=== PATIENT | female | born 1940 | race American Indian/Alaskan Native ===

== ENCOUNTER 2016-12-04 08:13 | Outpatient (CLI) | payer MEDICARE ==
--- NOTE | 2016-12-04 11:40 | Cat Scan Report ---
CT chest with contrast: Aortic enlargement. Scissors images are obtained from the thoracic inlet to the upper abdomen. Coronal and sagittal 2-D reformatted images are included. The thyroid gland appears slightly inhomogeneous. There may be a nodule present in the left lobe. 2.2 cm nodule in the isthmus. There is no hilar mediastinal nor axillary adenopathy. Central airways are patent. The ascending aorta measures just under 4 cm in diameter. The descending aorta is approximately 3 cm in diameter. There is a smooth aortic contour. No significant calcification. There is a round smooth walled low density noncalcified 7 mm nodule in the right middle lobe. The lungs otherwise are clear the pleural surfaces are unremarkable. There is a hypodense 15 mm nodule in the inferior spleen. The density is greater than that of simple cyst. There is a partially imaged 17 mm peripelvic cyst in the right kidney. Impressions: 1. Ectatic aorta. No aneurysm. 2. Thyroid nodules. 3. Low suspicion right middle lobe pulmonary nodule. 4. Splenic nodule. This could represent a high density cyst. Recommendation: Repeat chest in 4-6 months to reevaluate right middle lobe nodule.
== END 2016-12-04 08:14 | disposition home or self-care (01) ==
LOC: SPVIMAG 08:13
PROVIDERS: ATTEND Internal Medicine
DX: R91.1 Solitary pulmonary nodule (principal); I77.819 Aortic ectasia, unspecified site; N28.1 Cyst of kidney, acquired; E04.1 Nontoxic single thyroid nodule
CPT/HCPCS: 71260; Q9967

== ENCOUNTER 2017-04-21 09:31 | Outpatient (CLI) | payer MEDICARE ==
--- NOTE | 2017-04-22 11:36 | Mammography Report ---
BILATERAL DIGITAL SCREENING MAMMOGRAM with CAD: 04/21/17 09:31:00 CLINICAL: Routine screening. COMPARISON:04/24/16 FINDINGS: The breasts are mostly fatty with a few bilateral fibroglandular densities. No mass, architectural distortion or suspicious calcifications. IMPRESSION: No mammographic evidence of malignancy. BI-RADS CATEGORY: 1 - - Negative RECOMMENDATION: Routine mammographic screening in one year. COMMENT: Patient follow-up letters are generated by our [employer] application.
== END 2017-04-21 09:32 | disposition home or self-care (01) ==
LOC: SPVWC 09:31
PROVIDERS: ATTEND Internal Medicine
DX: Z12.31 Encounter for screening mammogram for malignant neoplasm of breast (principal)
CPT/HCPCS: 77067; G0202

== ENCOUNTER 2018-01-26 10:53 | Outpatient (CLI) | payer MEDICARE ==
--- NOTE | 2018-01-31 14:13 | Cat Scan Report ---
FINAL REPORT EXAM: CT CHEST WO CON HISTORY: F/U PULMONARY NODULE TECHNIQUE: CT of the chest was performed without intravenous contrast. Reconstructions were included in the coronal and sagittal planes. PRIORS: CT of the chest from 12/04/2016. FINDINGS: Great vessels: Mildly aneurysmal descending thoracic aorta is seen measuring up to 3.1 centimeters. Mildly aneurysmal ascending thoracic aorta is seen measuring up to 4.1 centimeters. Lungs and airways: No pleural effusion. Unchanged 7 millimeter ground-glass nodule in the right middle lobe on series 2, image 68. No new nodules. No airspace consolidation. The airways are patent. No bronchiectasis. Bilateral dependent atelectasis is seen. Mediastinum, heart, pericardium: No mediastinal lymphadenopathy. No cardiac chamber enlargement. No pericardial effusion. Coronary artery calculi are again seen. Thoracic inlet, chest wall, axilla: No chest wall masses. Unchanged heterogeneous, enlarged multinodular thyroid gland. No axillary lymphadenopathy. Upper abdomen: Incompletely imaged small low-attenuation right hepatic lesion which likely represents a simple cyst. Hepatic steatosis is noted. Bones: Degenerative changes are again seen in the spine. IMPRESSION: 1. Unchanged 7 millimeter ground-glass right middle lobe pulmonary nodule. Recommend follow-up chest CT in 2 years. 2. Unchanged enlarged thyroid gland with multiple nodules. Recommend further evaluation with thyroid ultrasound if 1 has not already been performed. 3. Hepatic steatosis. 4. Probable simple right hepatic cyst. 5. 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 6. Coronary artery calculi.
== END 2018-01-26 10:54 | disposition home or self-care (01) ==
LOC: CT 10:53
PROVIDERS: ATTEND Internal Medicine
DX: R91.1 Solitary pulmonary nodule (principal); I71.2 Thoracic aortic aneurysm, without rupture; M47.899 Other spondylosis, site unspecified; K76.0 Fatty (change of) liver, not elsewhere classified; E04.9 Nontoxic goiter, unspecified; I25.10 Atherosclerotic heart disease of native coronary artery without angina pectoris
CPT/HCPCS: 71250

== ENCOUNTER 2019-03-17 09:48 | Outpatient (CLI) | payer MEDICARE ==
--- NOTE | 2019-03-20 14:48 | Mammography Report ---
BILATERAL DIGITAL SCREENING MAMMOGRAM WITH CAD INDICATION: Routine screening mammography. TECHNIQUE: Digital bilateral 2D mammography was obtained in the craniocaudal and mediolateral obliq ue projections. This examination was interpreted with the benefit of Computer-Aided Detection analysi s. COMPARISON: 04/24/2016 FINDINGS: Breast Density: The breasts are heterogeneously dense, which may obscure small masses. No mass, architectural distortion or suspicious calcifications. A few bilateral benign calcifications . IMPRESSION:No mammographic evidence of malignancy. BI-RADS Category 2: Benign. No mammographic evidence of malignancy. Recommend routine screening ma mmography in one year. A "normal" or negative report should not discourage follow up or biopsy of a clinically significant f inding. A written summary of these findings will be mailed to the patient. The patient will be entered into a mammography reporting system which will generate a reminder letter for the patient's next appointmen t at the appropriate interval. The [employer] recommends yearly mammograms starting at age 40 and continuing as l eddie as a woman is in good health. Breast MRI is recommended for women with an approximate 20-25% or greater lifetime risk of breast cancer, including women with a strong family history of breast or ova mervin cancer or who have been treated for Hodgkin's disease. Signer Name: Messi Tobar MD Signed: 03/20/2019 2:44 PM Workstation Name: [id number]
== END 2019-03-17 09:49 | disposition home or self-care (01) ==
LOC: SPVWC 09:48
PROVIDERS: ATTEND Internal Medicine
DX: Z12.31 Encounter for screening mammogram for malignant neoplasm of breast (principal)
CPT/HCPCS: 77067

== ENCOUNTER 2019-06-13 09:32 | Outpatient (CLI) | payer MEDICARE ==
--- NOTE | 2019-06-13 12:35 | Magnetic Resonance Report ---
MRI LUMBAR SPINE WITHOUT CONTRAST INDICATION / CLINICAL INFORMATION: Low back pain TECHNIQUE: Multisequence, multiplanar images of the lumbar spine were obtained. COMPARISON: None available. FINDINGS: Please note some of these images are motion related artifacts. S1 is transitional. Last disc space is considered to be S1-S2. ALIGNMENT: Normal lumbar lordosis with mild dextroscoliosis. VERTEBRAE:Normal marrow signal and vertebral body height for age. VISUALIZED SPINAL CORD: No significant abnormality. Conus ends at the L1 level. [id number] ANALYSIS: Bulging disc is seen at T11-T12 and T12-L1 disc levels. At T12-L1 disc level, moderate facet joint hy pertrophic changes are seen. Neuroforamina are normal. L1-2: Disc Space is narrowed. Schmorl's node with surrounding edema is seen suggesting this may be mo re acute. Broad-based soft disc protrusion is seen extending laterally bilaterally more to the right side. Neuroforamina are narrowed. L2-3: Disc space is narrowed. Spondylolisthesis seen. Facet joint hypertrophic changes are seen bilat erally. Broad-based superimposed disc protrusion is seen extending bilaterally. Both neuroforamina ar e narrowed. L3-4: Broad-based shallow disc protrusion is seen towards the left side. Facet joint hypertrophic radha nges are seen bilaterally. Neuroforamina are narrowed. L4-5: Second disc space from below) moderate thecal sac stenosis seen due to combination of broad-bas ed disc protrusion, facet and ligamentous hypertrophy. Neuroforamina and lateral recesses are narrowe d. Foraminal stenoses at multiple levels L5-S1: Disc space from below) facet joint hypertrophic changes are seen bilaterally. Neuroforamina an d the lateral recesses are narrowed. S1-S2 disc space is normal. PARASPINAL SOFT TISSUES: No significant abnormality. ADDITIONAL FINDINGS: None. IMPRESSION: Some of these imaging sequences are marred by motion artifacts. I am considering S1 to be transitional. Last disc space is considered to be S1-S2. Spondylotic changes at almost every lumbar disc level Broad-based disc protrusions at L1-L2 at L2-L3 3 disc levels and to a lesser degree at L3-L4 at L4-L5 disc levels Thecal sac stenoses at L4-L5 disc level Signer Name: Dion Santos MD Signed: 06/13/2019 12:30 PM Workstation Name: [id number]
== END 2019-06-13 09:33 | disposition home or self-care (01) ==
LOC: MRI 09:32
PROVIDERS: ATTEND Internal Medicine
DX: M51.36 Other intervertebral disc degeneration, lumbar region (principal)
CPT/HCPCS: 72148

== ENCOUNTER 2020-10-21 10:12 | Outpatient (CLI) | payer MEDICARE ==
--- NOTE | 2020-10-21 11:12 | Mammography Report ---
DIGITAL SCREENING MAMMOGRAM WITH CAD, 10/21/2020 CLINICAL INFORMATION / INDICATION: Routine screening mammography. TECHNIQUE: Digital bilateral 2D mammography was obtained in the craniocaudal and mediolateral obliqu e projections. This examination was interpreted with the benefit of Computer-Aided Detection analysis . COMPARISON: 03/17/2019, 04/21/2017 FINDINGS: Breast Density: There are scattered areas of fibroglandular density. No dominant mass, suspicious calcifications, or architectural distortion in either breast. IMPRESSION: No mammographic evidence of malignancy. Follow up recommendation: Routine yearly BI-RADS Category 1: Negative. A "normal" or negative report should not discourage follow up or biopsy of a clinically significant f inding. A written summary of these findings will be mailed to the patient. The patient will be entered into a mammography reporting system which will generate a reminder letter for the patient's next appointmen t at the appropriate interval. The [employer] recommends yearly mammograms starting at age 40 and continuing as l eddie as a woman is in good health. Breast MRI is recommended for women with an approximate 20-25% or greater lifetime risk of breast cancer, including women with a strong family history of breast or ova mervin cancer or who have been treated for Hodgkin's disease. Signer Name: Vasu Soto MD Signed: 10/21/2020 11:08 AM Workstation Name: [id number]
== END 2020-10-21 10:13 | disposition home or self-care (01) ==
LOC: SPVWC 10:12
PROVIDERS: ATTEND Internal Medicine
DX: Z12.31 Encounter for screening mammogram for malignant neoplasm of breast (principal)
CPT/HCPCS: 77067

== ENCOUNTER 2020-10-28 07:21 | Outpatient (CLI) | payer MEDICARE ==
--- NOTE | 2020-10-28 08:42 | Cat Scan Report ---
CT CHEST WITHOUT CONTRAST INDICATION / CLINICAL INFORMATION: PULMONARY NODULE. TECHNIQUE: Axial CT images were obtained through the chest without contrast. Sagittal and coronal reformatted im ages. All CT scans at this location are performed using CT dose reduction for ALARA by means of autom ated exposure control. COMPARISON: 01/26/2018 FINDINGS: HEART: No significant abnormality. THORACIC AORTA: Mild dilatation of the ascending aorta is stable at 4.1 cm. MEDIASTINUM and SHARRON: No significant abnormality. LUNGS: No acute air space or interstitial disease. Previously described 7 mm groundglass nodule in t he right middle lobe is unchanged since the previous exam. There is a similar appearing 4 mm groundgl ass density in the superior segment of the left lower lobe on axial image 34. In retrospect this is a lso unchanged. No new or suspicious nodule. PLEURA: No significant pleural effusion. No pneumothorax. SKELETAL SYSTEM: Mild degenerative changes in the thoracic spine. No fracture or suspicious bony lesi on. UPPER ABDOMEN: No significant abnormality. ADDITIONAL FINDINGS: None. IMPRESSION: No change since 01/26/2018. FLEISCHNER 2017 GUIDELINE FOR PULMONARY NODULES SOLID NODULES SOLITARY Solitary nodule size: <6 mm * low-risk patients: no follow-up needed * high-risk patients: optional CT at 12 months (see specific scenarios below) Solitary nodule size: 6-8 mm * low-risk patients: follow-up at 6-12 months, then consider further follow-up at 18-24 months * high-risk patients: initial follow-up CT at 6-12 months and then at 18-24 months if no change Solitary nodule size: >8 mm * either low or high-risk patients * consider follow-up CT at 3 months, and/or CT-PET, and/or biopsy MULTIPLE Multiple nodules size: <6 mm * low-risk patients: no routine follow-up * high-risk patients: optional CT at 12 months Multiple nodules size: 6-8 mm * low-risk patients: follow-up at 3-6 months, then consider further follow-up at 18-24 months * high-risk patients: follow-up at 3-6 months, then at 18-24 months if no change Multiple nodules size: >8 mm * low-risk patients: follow-up at 3-6 months, then consider further follow-up at 18-24 months * high-risk patients: follow-up at 3-6 months, then at 18-24 months if no change Note: newly detected indeterminate nodule in persons 35 years of age or older * low-risk patients: a minimal or absent history of smoking and or other known risk factors * high-risk patients: a history of smoking or of other known risk factors (e.g. first degree relativ e with lung cancer, or exposure to asbestos, radon, uranium) * if a nodule up to 8 mm is partly solid or is ground glass further follow-up is required after 24 m onths to exclude possible slow growing adenocarcinoma SUBSOLID NODULES Solitary pure ground-glass nodule * nodule size: <6 mm * no CT follow-up required * nodule size: 6 mm * follow up CT at 6-12 months, then every 2 years until 5 years Solitary part-solid nodule * nodule size: <6 mm * no CT follow-up required * nodule size: 6 mm * follow-up CT at 3-6 months * if unchanged, and solid component remains <6mm, then annual follow-up for 5 years Multiple sub-solid nodules * nodule size: <6 mm * follow-up CT at 3-6 months * consider further follow-up at 2 and 4 years if stable * nodule size: 6 mm * follow-up CT at 3-6 months * subsequent management based on the most suspicious nodule(s) PRACTICAL POINTS NODULE MEASUREMENT * ideally, the nodules should be measured on its larger diameter (regardless plane) of thin-section CT images displayed in lung windows (highspatial-frequency filter) * thin slices (1.01.5 mm) should be standard for the characterization of pulmonary nodules as it all ows for a better detection of calcium or fat components and avoids volume averaging, which is commonl y seen in thicker slices * large nodules are encouraged to be measured in both their long and short-axis for follow-up purpos es * partly solid nodules that have a solid component over 3 mm should have the maximal diameter of the solid component reported GUIDELINE EXCLUSIONS * patients aged 35 years or younger * considered to have an overall low risk for malignancy pulmonary * in this age group, nodules are most likely to be infectious than cancer * management of incidentally found pulmonary nodules in this group should be individualised * patients with known malignancy * an incidentally detected pulmonary nodule is more likely to be cancer-related that in the general population * immunocompromised patients * higher risk for opportunistic pulmonary infections * lung cancer screening population * these patients are on active screening for being high-risk for lung cancer development, usually cu rrent and former smokers, and, therefore, should have their scans reported accordingly to the Lung-RA DS (lung imaging reporting and data system) https://radiopaedia.org/articles/gsggcadehd-lqxkrev-pztgrhioh-skkhib-zeegatlzsiboowq-2gmyr=us http://www.radiologyassistant.nl/en/[email or web address]/scjedxigbr-[email or web address]-wxhjhqxqr-yzr-fvqoxzysw-mnymqmo.ht ml Signer Name: Elías Centeno Jr, MD Signed: 10/28/2020 8:38 AM Workstation Name: [id number]
== END 2020-10-28 07:22 | disposition home or self-care (01) ==
LOC: CT 07:21
PROVIDERS: ATTEND Internal Medicine
DX: R91.1 Solitary pulmonary nodule (principal); M47.814 Spondylosis without myelopathy or radiculopathy, thoracic region
CPT/HCPCS: 71250

== ENCOUNTER 2021-10-29 10:33 | Outpatient (CLI) | payer MEDICARE ==
--- NOTE | 2021-10-30 14:39 | Mammography Report ---
DIGITAL SCREENING MAMMOGRAM WITH CAD, 10/29/2021 CLINICAL INFORMATION / INDICATION: Routine screening mammography. SCREENING MAMMO Z12.31 TECHNIQUE: Digital bilateral 2D mammography was obtained in the craniocaudal and mediolateral obliqu e projections. This examination was interpreted with the benefit of Computer-Aided Detection analysis . COMPARISON: 10/21/2020 FINDINGS: Breast Density: There are scattered areas of fibroglandular density. No dominant mass, suspicious calcifications, or architectural distortion in either breast. IMPRESSION: No mammographic evidence of malignancy. Follow up recommendation: Routine yearly BI-RADS Category 1: NEGATIVE A "normal" or negative report should not discourage follow up or biopsy of a clinically significant f inding. A written summary of these findings will be mailed to the patient. The patient will be entered into a mammography reporting system which will generate a reminder letter for the patient's next appointmen t at the appropriate interval. The [employer] recommends yearly mammograms starting at age 40 and continuing as l eddie as a woman is in good health. Breast MRI is recommended for women with an approximate 20-25% or greater lifetime risk of breast cancer, including women with a strong family history of breast or ova mervin cancer or who have been treated for Hodgkin's disease. Signer Name: Mark Reardon MD Signed: 10/30/2021 2:34 PM Workstation Name: [id number]
== END 2021-10-29 10:34 | disposition home or self-care (01) ==
LOC: SPVWC 10:33
PROVIDERS: ATTEND Internal Medicine
DX: Z12.31 Encounter for screening mammogram for malignant neoplasm of breast (principal)
CPT/HCPCS: 77067